=== PATIENT | male | born 1945 | race Caucasian/White ===

== ENCOUNTER → 2023-06-24 06:43 | Outpatient (REF) | payer MEDICARE, SELFPAY | LOC: MRI 06:43 | PROVIDERS: ATTENDING PHYSICIAN Internal Medicine Rheumatology; FAMILY PHYSICIAN Internal Medicine | DX: M79.605 Pain in left leg (principal); M47.27 Other spondylosis with radiculopathy, lumbosacral region | CPT/HCPCS: 72148 ==